=== PATIENT | female | born 1965 | race Caucasian/White ===

== ENCOUNTER 2018-05-22 21:23 | Emergency (ER) | payer OTHER ==
--- NOTE | 2018-05-22 23:00 | ED PDOC ---
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 Diff (from abx use) presenting with RUQ abdominal pain. The pain started earlier today around 1:30pm. The pain came on very suddenly at maximum intensity. The pain is described as sharp in nature and radiates around the right side of her back and shoots up to her right shoulder. She is mildly nauseous but has not vomited. She attempted taking Tylenol, Protonix and Pepto Bismol while at home, but the pain did not improve so she decided to come to the hospital. Denies fevers, chills, diarrhea, constipation, chest pain, shortness of breath, headaches, vision changes, numbness or tingling. PMH: osteoporosis, GERD and previous C. Diff (from abx use) PSH: none Family: denies Social: denies tobacco, alcohol or illicit drug use Allergies: NKDA (Kurt Uribe) Past Medical History - Provider Review Nursing Documentation Reviewed: Yes - Infectious Disease Hx of Infectious Diseases: C.diff - Cardiac Hx Cardiac Disorders: No - Pulmonary Hx Respiratory Disorders: No - Neurological Hx Neurological Disorder: No - HEENT Hx HEENT Disorder: No - Renal Hx Renal Disorder: No - Endocrine/Metabolic Hx Endocrine Disorders: No - Hematological/Oncological Hx Blood Disorders: Yes Hx Hepatitis C: Yes (history) - Integumentary Hx Dermatological Disorder: No - Musculoskeletal/Rheumatological Hx Musculoskeletal Disorders: Yes Hx Osteoporosis: Yes - Gastrointestinal Hx Gastrointestinal Disorders: Yes Hx Gastritis: Yes Other/Comment: Cdiff 2012 - Genitourinary/Gynecological Hx Genitourinary Disorders: No - Psychiatric Hx Psychophysiologic Disorder: No Hx Substance Use: No - Surgical History Hx Hysterectomy: Yes - Anesthesia Hx Anesthesia: Yes Hx Anesthesia Reactions: No Hx Malignant Hyperthermia: No <Kurt Uribe - Last Filed: 05/23/18 01:59> Family/Social History - Physician Review Nursing Documentation Reviewed: Yes Family/Social History: No Known Family HX Smoking Status: Never Smoked Hx Alcohol Use: No Hx Substance Use: No <Kurt Uribe - Last Filed: 05/23/18 01:59> Allergies/Home Meds <PetronaSameer - Last Filed: 05/23/18 01:40> <Kurt Uribe - Last Filed: 05/23/18 01:59> Allergies/Adverse Reactions: Allergies No Known Allergies Allergy (Verified 05/22/18 22:54) Home Medications: Home Meds Medication Instructions Recorded Confirmed Alendronate Sodium [Alendronate 35 mg PO DAILY 05/22/18 05/22/18 (Fosamax)] Pantoprazole [Protonix EC Tab] 40 mg PO DAILY 05/22/18 05/22/18 Review of Systems - Physician Review All systems were reviewed & negative as marked: Yes - Review of Systems Constitutional: Normal Eyes: Normal ENT: Normal Respiratory: Normal. absent: SOB, Cough Cardiovascular: Normal. absent: Chest Pain Gastrointestinal: Abdominal Pain (RUQ ). absent: Stool Changes, Constipation, Diarrhea, Nausea, Vomiting Genitourinary Female: Normal. absent: Dysuria, Frequency, Vaginal Bleeding, Vaginal Discharge Musculoskeletal: Normal Skin: Normal. absent: Rash Neurological: Normal Endocrine: Normal. absent: Diaphoresis Hemo/Lymphatic: Normal Psychiatric: Normal. absent: Anxiety <Kurt Uribe - Last Filed: 05/23/18 01:59> Physical Exam Vital Signs Reviewed: Yes Temperature: Afebrile Blood Pressure: Normal Pulse: Regular Respiratory Rate: Normal Appearance: Positive for: Well-Appearing, Non-Toxic, Comfortable Pain Distress: None Mental Status: Positive for: Alert and Oriented X 3 - Systems Exam Head: Present: Atraumatic, Normocephalic Pupils: Present: PERRL Extroacular Muscles: Present: EOMI Conjunctiva: Present: Normal Mouth: Present: Moist Mucous Membranes Neck: Present: Normal Range of Motion Respiratory/Chest: Present: Clear to Auscultation, Good Air Exchange. No: Respiratory Distress, Accessory Muscle Use Cardiovascular: Present: Regular Rate and Rhythm, Normal S1, S2. No: Murmurs Abdomen: Present: Tenderness (RUQ ), Normal Bowel Sounds. No: Distention, Peritoneal Signs, Rebound, McBurney's Point Tender, Rovsing's Sign Present, Mass /Organomegaly Back: Present: Normal Inspection. No: CVA Tenderness, Midline Tenderness Upper Extremity: Present: Normal Inspection, NORMAL PULSES. No: Cyanosis, Edema Lower Extremity: Present: Normal Inspection, NORMAL PULSES. No: Edema, CALF TENDERNESS Neurological: Present: GCS=15, CN II-XII Intact, Speech Normal Skin: Present: Warm, Dry, Normal Color. No: Rashes Psychiatric: Present: Alert, Oriented x 3, Normal Insight, Normal Concentration <Kurt Uribe - Last Filed: 05/23/18 01:59> Vital Signs Temp Pulse Resp BP Pulse Ox 05/22/18 23:18 98.6 F 64 18 132/78 99 Medical Decision Making <Sameer Russ - Last Filed: 05/23/18 01:40> Re-evaluation Time: 01:16 Reassessment Condition: Improving,but remains with symptoms - Lab Interpretations I have reviewed the lab results: Yes - RAD Interpretation Folder Inspector: Radiologist - EKG Interpretation Interpreted by ED Physician: Yes Type: 12 lead EKG Comparison: No previous EKG avail. <Kurt Uribe - Last Filed: 05/23/18 01:59> ED Course and Treatment: Impression: Patient seen and evaluated with medical billing specialist. Pt, whose past medical history includes osteoporosis, GERD, and C.diff, who presented for RUQ pain and nausea. Aware and agree with HPI, clinical findings, plan, and management. Plan: -- US Abdomen -- Labs, lipase -- UA -- Morphine -- Zofran -- Reassess and disposition (Sameer Russ) 05/22/18 23:34 Healthy appearing female patient who is severely tender to palpation in the RUQ of her abdomen. Labs, RUQ ultrasound --> r/o gallbladder pathology 05/23/18 00:01 Patient refusing morphine, will give Toradol instead. 05/23/18 01:16 Normal abdominal US. Patient states her pain is improving. 05/23/18 01:40 Patient's pain is drastically improved. Will discharge patient home with instructions to follow up with her GI specialist and primary care physician. ( Kurt Uribe) - Lab Interpretations Lab Results: 05/22/18 23:25 05/22/18 23:25 Lab Results 05/22/18 23:25: Sodium 141, Potassium 3.9, Chloride 104, Carbon Dioxide 27, Anion Gap 14, BUN 9, Creatinine 0.6 L, Est GFR ( Amer) > 60, Est GFR (Non -Af Amer) > 60, Random Glucose 113 H, Calcium 9.8, Phosphorus 3.3, Magnesium 2.2 , Total Bilirubin 0.6, AST 156 H, ALT 74 H, Alkaline Phosphatase 110, Total Protein 8.4 H, Albumin 4.6, Globulin 3.8, Albumin/Globulin Ratio 1.2, Lipase 99 05/22/18 23:25: WBC 8.7, RBC 4.30, Hgb 11.4 L, Hct 35.2 L, MCV 81.9, MCH 26.5, MCHC 32.4, RDW 13.8, Plt Count 253, MPV 12.0 H, Gran % 68.8 H, Lymph % (Auto) 22.3, Oliver % (Auto) 7.9 H, Eos % (Auto) 0.8 L, Baso % (Auto) 0.2, Gran # 5.97, Lymph # (Auto) 1.9, Oliver # (Auto) 0.7 H, Eos # (Auto) 0.1, Baso # (Auto) 0.02 05/22/18 23:15: Urine Color Yellow, Urine Appearance Clear, Urine pH 7.5, Ur Specific [place] <= 1.005, Urine Protein Negative, Urine Glucose (UA) Negative, Urine Ketones Negative, Urine Blood Negative, Urine Nitrate Negative, Urine Bilirubin Negative, Urine Urobilinogen 0.2, Ur Leukocyte Esterase Negative - RAD Interpretation Narrative RAD Interpretations (Text): 05/23/18 01:15 Abdominal US: Normal abdominal ultrasound. (Kurt Uribe) Radiology Orders: 05/22/18 23:10 ABDOMEN COMPLETE [US] Stat - EKG Interpretation EKG Interpretation (Text): 05/22/18 23:35 NSR @64bpm, normal axis, no acute ST segment changes (Kurt Uribe) - Medication Orders Current Medication Orders: Discontinued Medications Ketorolac Tromethamine (Toradol) 30 mg IVP STAT STA Stop: 05/22/18 23:59 Last Admin: 05/23/18 00:19 Dose: 30 mg MAR Pain Assessment Document 05/23/18 00:19 (Rec: 05/23/18 00:24 [id number]) Pain Reassessment Is this a pain reassessment? Yes Sleep Is patient sleeping during reassessment? No Presence of Pain Presence of Pain Yes Pain Scale Used Pain Scale Used Numeric Location Left, Right or Bilateral Right Upper or Lower Upper Pain Location Body Site Abdomen Description Description Acute Pain Behavior Rubbing Site IVP Administration Document 05/23/18 00:19 (Rec: 05/23/18 00:24 [id number]) Charges for Administration # of IVP Administrations 1 Ondansetron HCl (Zofran Inj) 4 mg IVP STAT STA Stop: 05/22/18 23:20 Last Admin: 05/22/18 23:57 Dose: 4 mg IVP Administration Document 05/22/18 23:57 (Rec: 05/22/18 23:57 [id number]) Charges for Administration # of IVP Administrations 1 - PA / WET WHEELER / Resident Statement / has reviewed & agrees with the documentation as recorded. / has examined the patient and agrees with the treatment plan. <Sameer Russ - Last Filed: 05/23/18 01:40> Disposition/Present on Arrival - Present on Arrival Any Indicators Present on Arrival: No - Disposition Have Diagnosis and Disposition been Completed?: Yes Disposition Time: 01:41 Patient Plan: Discharge <Sameer Russ - Last Filed: 05/23/18 01:40> - Present on Arrival Any Indicators Present on Arrival: No History of DVT/PE: No History of Uncontrolled Diabetes: No Urinary Catheter: No History of Decub. Ulcer: No History Surgical Site Infection Following: None - Disposition Have Diagnosis and Disposition been Completed?: Yes Patient Plan: Discharge <Kurt Uribe - Last Filed: 05/23/18 01:59> - Disposition Diagnosis: Gastritis Disposition: HOME/ ROUTINE Patient Problems: Current Active Problems Problem Status Onset Gastritis Acute Condition: GOOD Discharge Instructions (ExitCare): Gastritis (DC) Additional Instructions: [place] diet next few days/take meds as prescribed/follow up with your doctor this week/any recurrent worsening symptoms return to the emergency room Prescriptions: Phenobarb/Hyoscy/Atropine/Scop [ Tablet] 16.2 mg PO Q6 PRN #12 tablet PRN Reason: Dyspepsia Referrals: Omi Luna MD [Primary Care Provider] - Follow up with primary Forms: [employer] ([place])
[2018-05-22] MEDS ORDERED: Morphine 2 mg/ml ISec IVP STA (23:18)
[2018-05-22 23:19] VITALS: RESP 18
[2018-05-22 23:57] LABS: PH,URINE 7.5 (4.7-8.0); URINE APPEARANCE CLEAR (CLEAR); URINE BILIRUBIN NEGATIVE (NEGATIVE); URINE BLOOD NEGATIVE (NEGATIVE); URINE COLOR YELLOW (YELLOW); URINE GLUCOSE (UA) NEGATIVE (NEGATIVE); URINE LEUKOCYTE ESTERASE NEGATIVE Leu/uL (NEGATIVE); URINE PROTEIN NEGATIVE mg/dL (<30 mg/dL); URINE UROBILINOGEN 0.2 E.U./dL (<1 E.U./dL)
[2018-05-22 23:59] LABS: BASO # 0.02 K/mm3 (0.0-2.0); BASO % 0.2 % (0.0-3.0); EOS # 0.1 (0.0-0.7); EOS % 0.8 % (1.5-5.0); GRAN # 5.97 (1.4-6.5); GRAN % 68.8 % (50.0-68.0); HEMOGLOBIN 11.4 g/dL (12.0-16.0); LYMPH # 1.9 (1.2-3.4); LYMPH % 22.3 % (22.0-35.0); MEAN CELL VOLUME 81.9 fl (80.0-105.0); MEAN CORPUSCULAR HEMOGLOBIN 26.5 pg (25.0-35.0); MEAN CORPUSCULAR HGB CONC 32.4 g/dl (31.0-37.0); MONO # 0.7 (0.1-0.6); MONO % 7.9 % (1.0-6.0); RBC 4.3 10^6/uL (3.5-6.1); RED CELL DISTRIBUTION WIDTH 13.8 % (11.5-14.5); WHITE BLOOD COUNT 8.7 10^3/ul (4.5-11.0)
[2018-05-23 00:06] LABS: ALB/GLOB RATIO 1.2 (1.1-1.8); ALBUMIN 4.6 g/dL (3.0-4.8); ALT/SGPT 74 U/L (7-56); AST/SGOT 156 U/L (14-36); BLOOD UREA NITROGEN 9 mg/dL (7-21); CALCIUM 9.8 mg/dL (8.4-10.5); GFR NON-AFRICAN AMERICAN > 60; LIPASE 99 U/L (23-300)
[2018-05-23 02:23] VITALS: BP 117/75; PULSE 58
[2018-05-23 02:24] VITALS: TEMP 98.5; O2SAT 97
--- NOTE | 2018-05-23 12:07 | US ---
Date of service: 05/23/2018 HISTORY: RUQ pain COMPARISON: None. TECHNIQUE: Sonographic evaluation of the abdomen. FINDINGS: LIVER: Measures 14.1 cm. Normal echogenicity of the liver parenchyma. No mass. No intrahepatic bile duct dilatation. GALLBLADDER: Unremarkable. No gallstones. COMMON BILE DUCT: Measures 4.3 mm. No stones. No dilatation. PANCREAS: Unremarkable as visualized. No mass. No ductal dilatation. RIGHT KIDNEY: Measures 10 x 3.5 x 4cm. Normal echogenicity. No calculus, mass, or hydronephrosis. LEFT KIDNEY: Measures 9.5 x 3.6 x 5.5cm. Normal echogenicity. No calculus, mass, or hydronephrosis. SPLEEN: Normal in size and contour. No mass. AORTA: No aneurysmal dilatation. IVC: Unremarkable. OTHER FINDINGS: None. IMPRESSION: No evidence of cholelithiasis or cholecystitis. No ultrasound evidence of acute pathology in the abdomen. Preliminary report was submitted by [facility].
--- NOTE | 2018-05-23 15:52 | CARD ---
APPROVED REPORT Date of service: 05/22/2018 EKG Measurement Heart [id number] <Conclusion> Normal sinus rhythm Normal ECG
== END 2018-05-23 02:10 | disposition home or self-care (01) ==
LOC: ED 21:23
DX: K29.70 Gastritis, unspecified, without bleeding (principal); M81.0 Age-related osteoporosis without current pathological fracture
CPT/HCPCS: 76700; 80053; 81003; 83690; 83735; 84100; 85025; 93005; 96374; 96375; 99284; J1885; J2405